=== PATIENT | male | born 1990 | race Caucasian/White ===

== ENCOUNTER 2021-10-02 02:24 | Emergency (ER) | payer OTHER ==
[~2021-10-02] VITALS: Ht 180.3 cm; Wt 79.4 kg
[2021-10-02] MEDS ORDERED: OXYCODONE/APAP 5-325 MG TABLET ONE (04:10)
[2021-10-02] MEDS ORDERED: ONDANSETRON ODT 4 MG TAB.RAPDIS ONE (04:10)
[2021-10-02] MEDS ORDERED: ONDANSETRON ODT 4 MG TAB.RAPDIS SL ONE (04:15)
[2021-10-02] MEDS ORDERED: OXYCODONE/APAP 5-325 MG TABLET PO ONE (04:15)
[2021-10-02] MEDS ORDERED: ONDA4TAB5 PO (04:30)
[2021-10-02] MEDS ORDERED: OXYC-128 PO (04:30)
--- NOTE | 2021-10-02 04:58 | NUR ---
Patient discharged to home in stable condition. Written and verbal after care instructions given. Patient verbalizes understanding of instructions. Stressed follow up or return to ER for worsening s/s. Patient is a/ox4, NAD noted. Patient is able to walk with walker.
[2021-10-02 06:23] VITALS: BP 114/71
== END 2021-10-02 04:50 | disposition home or self-care (01) ==
LOC: ER 02:29
DX: S93.401A Sprain of unspecified ligament of right ankle, initial encounter (principal); S82.891A Other fracture of right lower leg, initial encounter for closed fracture; X58.XXXA Exposure to other specified factors, initial encounter; Y93.66 Activity, soccer; Y92.322 Soccer field as the place of occurrence of the external cause
CPT/HCPCS: 73610; A4663; Q0162

== ENCOUNTER 2021-12-02 23:06 | Emergency (ER) | payer OTHER ==
[~2021-12-02] VITALS: Ht 180.3 cm; Wt 79.4 kg
[~2021-12-02 23:06] MED LIST: ONDA4TAB5 PO; OXYC-128 PO
[2021-12-03] MEDS ORDERED: HYDROMORPHONE 1 MG/1 ML DISP.SYRIN IM ONE (01:30)
[2021-12-03] MEDS ORDERED: HYDROMORPHONE 1 MG/1 ML DISP.SYRIN ONE (01:31)
[2021-12-03] MEDS ORDERED: CYCLOBENZAPRINE HCL 10 MG TABLET ONE (02:58)
[2021-12-03] MEDS ORDERED: KETOROLAC TROMETHAMINE 60 MG INJ IM ONE ×2 (02:58→03:00)
[2021-12-03] MEDS ORDERED: NAPR-1164 PO (02:59)
[2021-12-03] MEDS ORDERED: CYCL10TA9 PO (02:59)
[2021-12-03] MEDS ORDERED: CYCLOBENZAPRINE HCL 10 MG TABLET PO ONE (03:00)
--- NOTE | 2021-12-03 03:05 | NUR ---
Patient discharged to home in stable condition. Written and verbal after care instructions given. Patient verbalizes understanding of instructions. Stressed follow up or return to ER for worsening s/s. Patient is a/ox4, NAD noted. Patient is accompanied by SO
[2021-12-03 03:24] VITALS: BP 115/67
== END 2021-12-03 03:05 | disposition home or self-care (01) ==
LOC: ER 23:09
DX: M54.50 Low back pain, unspecified (principal)
CPT/HCPCS: 99284; 96372 ×2; J1885; J1170; A4663